=== PATIENT | male | born 1980 | race Caucasian/White ===

== ENCOUNTER 2019-11-16 13:56 | Emergency (ER) | payer SELFPAY ==
--- NOTE | 2019-11-16 14:06 | DI.RAD.S_ITS ---
PROCEDURE: XR CHEST 1V INDICATIONS: soa TECHNIQUE: One view of the chest was acquired. COMPARISON: None. FINDINGS: Surgical changes and devices: None. Lungs and pleura: Lungs are clear. No pleural effusions or pneumothorax. Mediastinum: Mediastinal contours appear normal. Heart size is normal. Bones and chest wall: No suspicious bony lesions. Overlying soft tissues appear unremarkable. IMPRESSION: No evidence acute pulmonary process. Dictated by: Adolfo Hair M.D. on 11/16/2019 at 13:21 Approved by: Adolfo Hair M.D. on 11/16/2019 at 13:22
[2019-11-16 14:07] VITALS: TEMP 37.2
[2019-11-16 14:08] VITALS: BP 165/98; PULSE 113; RESP 98
[2019-11-16] MEDS: SODIUM CHLORIDE 0.9% 1,000 ML 150 ML IV (14:22)
[2019-11-16 14:29] LABS: Add Manual Diff / Slide Review NO; Basophils Absolute Auto 0 /uL (0-100); Basophils Percent Auto 0.3 % (0-2); Eosinophils Absolute Auto 0 /uL (0-450); Eosinophils Percent Auto 0.1 % (2-4); Hematocrit 46.8 % (41-53); Hemoglobin 16.3 g/dL (13.5-17.5); Lymphocytes Absolute Auto 1300 /uL (1100-4500); Lymphocytes Percent Auto 15.8 % (25-40); Mean Corpuscular HGB Conc 34.8 % (30-36); Mean Corpuscular Hemoglobin 34.7 PG (26-34); Mean Corpuscular Volume 99.5 fL (80-100); Monocytes Absolute Auto 600 /uL (0-900); Monocytes Percent Auto 7.7 % (3-14); Neutrophils Absolute Auto 6300 /uL (1500-7000); Neutrophils Percent Auto 76.1 % (50-75); Platelet Count 220 X10^3/uL (150-400); Red Blood Cell Count 4.71 X10^6/uL (4.5-5.9); Red Cell Distribution Width 14.4 % (11.6-14.8); White Blood Cell Count 8.2 X10^3/uL (4.5-11.0)
[2019-11-16 14:35] VITALS: BP 136/83; PULSE 106; RESP 22; O2SAT 97
[2019-11-16 14:44] LABS: BUN Creatinine Ratio 8.3 (6-22); Blood Urea Nitrogen 6 mg/dL (9-20); Calcium 9.6 mg/dL (8.4-10.2); Carbon Dioxide 28 mmol/L (22-32); Chloride 103 mmol/L (98-107); Creatine Kinase 78 U/L (55-170); Estimated Glomerular Filt Rate > 60.0 mL/min (>60); Glucose 96 mg/dL (70-100); HEMOLYSIS < 15 (0-50); Magnesium 2.1 mg/dL (1.6-2.3); Potassium 4.1 mmol/L (3.4-5.1); Sodium 139 mmol/L (137-145)
[2019-11-16 14:55] LABS: Troponin I < 0.012 ng/mL (0.01-0.034)
--- NOTE | 2019-11-16 14:57 | ED.ARRPALP ---
HPI - Arrhythmia/Palpitations General Chief Complaint: Arrhythmia/Palpitations Stated Complaint: bp/ vitals/ heart rate right Time Seen by Provider: 11/16/19 14:09 Source: patient Mode of arrival: Ambulatory Limitations: no limitations History of Present Illness HPI narrative: PATIENT IS A 39-YEAR-OLD MALE WHO PRESENTS WITH ANXIETY. HE HAS A HISTORY OF ANXIETY. He states that wearing masks and working is making his anxiety worse. Today he felt his heart pounding he was breathing fast and his hands got clamped up. He is doing a little bit better now in the emergency department but still feels quite anxious. He denies wanting to hurt himself or hurt others. MD complaint: rapid heart beat Related Data Allergies Allergy/AdvReac Type Severity Reaction Status Date / Time bupropion [From Wellbutrin] Allergy Verified 11/16/19 14:21 hydrocodone Allergy Verified 11/16/19 14:21 Review of Systems Review of Systems Narrative: GENERAL: Denies chills, fatigue, malaise, fever, sweats, travel HEENT: Denies sinus pain, ear pain, sore throat, difficulty swallowing, neck pain RESPIRATORY: Denies dyspnea, cough, wheezing, hemoptysis, sputum. CARDIOVASCULAR: Denies chest pain, palpitations, orthopnea, edema GASTROINTESTINAL: Denies nausea, vomiting, abdominal pain, diarrhea, constipation, melena. : Denies dysuria, frequency, incontinence, hematuria, urinary retention, flank pain. MUSCULOSKELETAL: Denies weakness, joint pain, or bony pain SKIN: No rash, no erythema, no pruritus NEUROLOGIC: Denies weakness, dizziness, headache, numbness, change in speech, confusion PSYCHIATRIC: See HPI 12 point review of systems is negative except for those stated above and HPI Patient History Medical History Anxiety (Acute) Social History Smoking Status: Current every day smoker Smoking Status: Current every day smoker tobacco type: cigarettes alcohol intake frequency: 0-2 drinks per day Substance Use Type: marijuana Exam Initial Vital Signs Initial Vital Signs: Vital Signs Temperature 99.0 F 11/16/19 14:07 GENERAL: Young male and in no acute distress. HEENT: Head atraumatic,EOMI, pupils reactive, face symmetric, moist mucous membranes CARDIOVASCULAR: Regular rate and rhythm without murmurs, rubs or gallops. RESPIRATORY: Breath sounds equal bilaterally, no wheezes rales or rhonchi. ABDOMEN: Soft, nontender. Normoactive bowel sounds all 4 quadrants. No guarding or rebound. EXTREMITIES: Normal range of motion, no clubbing or edema. Neurovascularly intact NEUROLOGICAL: Alert and oriented x4.Normal gait and speech. SKIN: Warm, dry, no laceration, no petechiae, no rashes or lesions. Course Orders Ordered: ED Orders 11/16/19 14:06 XR chest 1V Stat EKG-12 Lead Stat 11/16/19 14:19 Basic Metabolic Panel Stat Complete Blood Count AUTO DIFF Stat Magnesium Stat Thyroid Stimulating Hormone Stat Troponin & CK Cardiac Panel Stat Discontinued Medications Sodium Chloride (Normal Saline 0.9%) 1,000 mls @ 150 mls/hr IV CONT ANA Last Infusion: 11/16/19 15:23 Dose: 0 mls/hr Documented by: Infusion: 11/16/19 15:21 Dose: 0 mls/hr Documented by: Admin: 11/16/19 14:22 Dose: 150 mls/hr Documented by: SACHA Lorazepam (Ativan) 1 mg PO NOW ONE Stop: 11/16/19 15:10 Last Admin: 11/16/19 15:11 Dose: 1 mg Documented by: SACHA Vital Signs Vital signs: Vital Signs - 8 hr 11/16/19 14:07 11/16/19 14:08 11/16/19 14:35 Temperature 99.0 F Pulse Rate 113 H 106 H Respiratory Rate 98 H 22 Blood Pressure [Left Arm] 165/98 H 136/83 Pulse Oximetry 97 11/16/19 15:14 11/16/19 16:15 Temperature Pulse Rate 102 H 96 H Respiratory Rate 18 14 Blood Pressure [Left Arm] 152/96 H Pulse Oximetry 98 97 MDM - Arrhythmia/Palpitations Lab Data Attestation: I reviewed the patient's lab results. Result diagrams: 11/16/19 14:19 11/16/19 14:19 Labs: Lab Results 11/16/19 11/16/19 11/16/19 Range/Units 14:19 14:19 14:19 WBC 8.2 (4.5-11.0) X10^3/uL RBC 4.71 (4.5-5.9) X10^6/uL Hgb 16.3 (13.5-17.5) g/dL Hct 46.8 (41-53) % MCV 99.5 (80-100) fL MCH 34.7 H (26-34) PG MCHC 34.8 (30-36) % RDW 14.4 (11.6-14.8) % Plt Count 220 (150-400) X10^3/uL Neut % (Auto) 76.1 H (50-75) % Lymph % (Auto) 15.8 L (25-40) % [place] % (Auto) 7.7 (3-14) % Eos % (Auto) 0.1 L (2-4) % Baso % (Auto) 0.3 (0-2) % Neut # (Auto) 6300 (5595-8395) /uL Lymph # (Auto) 1300 (0718-5197) /uL [place] # (Auto) 600 (0-900) /uL Eos # (Auto) 0 (0-450) /uL Baso # (Auto) 0 (0-100) /uL Sodium 139 (137-145) mmol/L Potassium 4.1 (3.4-5.1) mmol/L Chloride 103 (98-107) mmol/L Carbon Dioxide 28 (22-32) mmol/L BUN 6 L (9-20) mg/dL Creatinine 0.72 (0.66-1.25) mg/dL Estimated GFR > 60.0 (>60) mL/min BUN/Creatinine Ratio 8.3 (6-22) Glucose 96 (70-100) mg/dL Calcium 9.6 (8.4-10.2) mg/dL Magnesium 2.1 (1.6-2.3) mg/dL Total Creatine Kinase 78 (55-170) U/L CK-MB (CK-2) TNP CK-MB (CK-2) Rel Index TNP Troponin I < 0.012 (0.01-0.034) ng/mL TSH 0.739 (0.47-4.68) uIU/mL Imaging Data Chest x-ray: Radiologist's Impresson: PROCEDURE: XR CHEST 1V INDICATIONS: soa TECHNIQUE: One view of the chest was acquired. COMPARISON: None. FINDINGS: Surgical changes and devices: None. Lungs and pleura: Lungs are clear. No pleural effusions or pneumothorax. Mediastinum: Mediastinal contours appear normal. Heart size is normal. Bones and chest wall: No suspicious bony lesions. Overlying soft tissues appear unremarkable. IMPRESSION: No evidence acute pulmonary process. Dictated by: Adolfo Hair M.D. on 11/16/2019 at 13:21 ECG Data Attestation: I personally reviewed and interpreted this ECG as follows: Prior ECG tracings: not available for review Interpretation: Normal sinus rate 114 p.r. interval 183 QRS [address] elevation depression or T-wave inversion MDM Narrative Medical decision making narrative: Patient is still feeling anxious after resting in the emergency department. He is given Ativan 1 mg to help with his anxiety which does seem to have helped. 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 I recommend possible long-term anxiety medication and he needs a primary care provider. He is requesting time off work. Heart rate has improved to 96 and is feeling better. Discharge Plan Departure Patient Disposition: Home Clinical Impression: Anxiety Discharge Date/Time: 11/16/19 16:15 Instructions: DI for Anxiety -- Adult Activity Restrictions/Additional Instructions: *You have been diagnosed with anxiety reaction *What to do: If anxiety continues to be in ongoing daily issue I recommend you see your primary care doctor for long-term anxiety medication and or counseling *Continue to take medications as directed *Follow up with your primary care provider in 2-3 days *Return to ER if you should have worsening anxiety, chest pain, thoughts of harming self or others or any new, worsening or concerning symptoms Stand Alone Forms: Work Release Note
[2019-11-16] MEDS: LORazepam 0.5 MG TABLET 1 MG PO (15:11)
[2019-11-16 15:14] VITALS: BP 152/96; PULSE 102; RESP 18; O2SAT 98
[2019-11-16 15:52] LABS: Thyroid Stimulating Hormone 0.739 uIU/mL (0.47-4.68)
[2019-11-16 16:15] VITALS: PULSE 96; RESP 14; O2SAT 97
== END 2019-11-16 16:15 | disposition home or self-care (01) ==
PROVIDERS: Emergency Provider Emergency Medicine
DX: F41.9 Anxiety disorder, unspecified (principal); R00.2 Palpitations
CPT/HCPCS: 36415; 71045; 80048; 82550; 83735; 84443; 84484; 85025; 93005; 96360; 99284